=== PATIENT | female | born 1950 | race Caucasian/White ===

== ENCOUNTER 2018-11-16 12:49 | Inpatient (IN) ==
[2018-11-16] MEDS ORDERED: Aluminum/Magnesium/Simethacone Susp 30 ML UDC PO PRN (17:56)
[2018-11-16] MEDS ORDERED: Bisacodyl 10 MG Supp RECTAL PRN (17:56)
[2018-11-16] MEDS: Senna/Docusate Sodium 8.6/50 MG Tablet PO SCH (20:25)
[2018-11-17] MEDS: Senna/Docusate Sodium 8.6/50 MG Tablet PO SCH (08:50)
[2018-11-17] MEDS ORDERED: Acetaminophen 325 MG Tablet PO PRN (10:14)
[2018-11-17] MEDS ORDERED: Aluminum/Magnesium/Simethacone Susp 30 ML UDC PO PRN (10:19)
[2018-11-17 10:58] LABS: Calcium 9.4 mg/dL (8.5-10.1); Carbon Dioxide 25.7 meq/L (21.0-32.0); Potassium 3.9 meq/L (3.5-5.1)
[2018-11-17 11:00] LABS: Chol/HDL Ratio 2.69 Ratio; HDL Cholesterol 78.9 mg/dL (40.0-60.0)
--- NOTE | 2018-11-17 11:21 | P.HPPSY ---
Provisional Diagnosis Admission Date: November 16, 2018 16:58 [place] I.: Bipolar affective disorder most recent episode tobi with psychotic features Competence Certification of Person's Competence To Provide Express and Informed Consent I have personally examined Cristiana Griffin, a person being served at [facility] on, November 17, 2018 1027. Express and informed consent means consent voluntarily given in writing, by a competent person, after sufficient explanation and disclosure of the subject matter involved to enable the person to make a knowing and willful decision without any element of force, fraud, deceit, duress, or other form of constraint or coercion. This person is 18 years of age or older, is not now known to be incompetent to consent to treatment with a guardian advocate, and does not have a health care surrogate or proxy currently making medical treatment decisions. I have found this person to be one of the following: [] Competent to provide express and informed consent, as defined above, for voluntary admission to this facility and is competent to provide express and informed consent for treatment. He/she has the consistent capacity to make well reasoned, willful, and knowing decisions concerning his or her medical or mental health treatment. The person fully and consistently understands the purpose of the admission for examination/placement and is fully capable of personally exercising all rights assured under [place]x] Incompetent to provide express and informed consent to voluntary admission, and this is incompetent to provide express and informed consent to treatment. The person must be transferred to involuntary status and a petition for a guardian advocate filed with the Circuit Court. Refusing to provide express and informed consent to voluntary admission but is competent to provide express and informed consent for treatment. The person must be discharged or transferred to involuntary status. Form shall be completed within 24 hours of a person's arrival at the receiving facility and filed in the clinical record of each person: 1. Admitted on a voluntary basis 2. Permitted to provide express and informed consent to his/her own treatment 3. Allowed to transfer from involuntary to voluntary status 4. Prior to permitting a person to consent to his or her own treatment after having been previously found incompetent to consent to treatment. History of Present Illness Capacity: Lacks capacity History of Present Illness: Patient is a 68-year-old white female comes here under Panda act signed by radha Gonzalez dated 11/15/18 at 092 2 hours stating tobi psychosis patient has FOI tangential speech and erratic behavior. Patient seen screen at that facility urine toxicology negative blood alcohol level negative. It appears there is a bout of 3-week history of increasingly erratic aggressive irritable behaviors with insomnia this led to increasing stress and confrontation with her . I have also talked with her Best norris at [id number] he verifies this. He also states that while they have been for 20 years he is noted episodes of what could be construed as hypomanic behavior. Times and she became paranoid aggressive hostile demanding and intrusive. She also gave a history of significant cardiac issues with severe heart attack a number of years ago she has had a atrial cardiovert defibrillator placed. Recently she has had a replacement which is her third replacement. Patient is also states that she is gotten worse over the past 4-5 weeks to the point where he had he had to leave the house and stay with his brother for about a week. He finally had to take her to [facility] and [place] for assessment. Leading to her transfer here under the Panda act. There was a CT done in [place] that was negative. Though I do not see any EKG. He states alcohol has never been a significant problem for this lady nor has other drugs. Though she states she had been a smoker in the past but she uses E cigarettes at this time. Patient states this is her second marriage been for 20+ years that she has no children of her own. At the present time patient sitting in the day room patient is seen there with floor staff. Patient is alert oriented to the fact that she is in a psychiatric unit in the hospital in [facility]. She notices 2018 and November. She denies suicidality or homicidality. However she is quite distraught over feelings that she is being spied upon and monitored by herself all that is giving out some type of radiation and also in the television. The may be an auditory component to this along with the delusional ideation. Patient denies having mental illness states she just wants to go home to her . She states she is somewhat distressed because she states the of her first recently. These perceptual abnormalities are quite intense and persistent. Patient's states that in the past her transformation specialist have suggested a mental health assessment but she has resisted that. Patient denies any physical or sexual abuse. Denies any mental illness in her family of origin and though there appears to be a niece who may be bipolar. As mentioned above I talked to the patient's he is quite concerned about his . He is willing to be healthcare surrogate. Except because at this time I feel patient does not have the capacity to make appropriate decisions concerning her care thus I will do first opinion supporting Panda act request second opinion also ask for healthcare surrogate and guardian advocate. We will have Hospitalist consult with us. We will check a Depakote blood level. It appears that the doctors at [facility] may have started her on Depakote prior to her transfer here. We will also check an EKG. Hopefully to be fairly short stay and can return to her family. The also stated that his wishes to be a full code - Inpatient Certification I certify that the inpatient services were ordered in accordance with Medicare regulations governing the order. This includes certification that hospital inpatient services are reasonable and necessary and in the case of services not specified as inpatient-only under 42 CFR 419.22(n), that they are appropriately provided as inpatient services in accordance to with the 2-midnight benchmark under 43 CFR 412.3(e) I certify that inpatient psychiatric hospital services are medically necessary. Evaluation and treatment and/or diagnostic testing are expected to improve the patient's condition. The patient needs on a daily basis, active treatment furnished directly by or requiring the supervision of inpatient psychiatric facility personnel. Estimated Total Length of Stay (Days): 7 Plans for Post Hospital Care: Home Review of Systems Patient has significant chronic long-term cardiac issues PMFSH - History History Provided By: Patient, Family Member (Patient's ) - Social History I have reviewed the patient's Social History: Yes - Tobacco History Second Hand Smoke Exposure: No Tobacco Use In Past 30 Days: Yes Smoking Status: Former smoker Tobacco Type: E-Cigarettes - Alcohol History How Often Do You Have a Drink Containing Alcohol: 2 to 3 times a week - Substance Use History Substance History: No History of Abuse - Travel History Recent Travel in the USA Within the Last 8 Weeks: No Recent Travel Out of the Country Within the Last 8 Weeks: No - Immunization History Tetanus Immunization: >5 Years Hx Influenza Vaccine This Season: No Quality Measures - Psychiatric History Psychological trauma history: Patient has had some stressors with cardiac arrhythmias Violence risk to others in the last 6 months: Patient has become somewhat verbally aggressive with family members Violence risk to self in the last 6 months: Patient denies - Substance Abuse History Drug or alcohol use in the past 12 months: Rare alcohol denies other drug use - Patient Strengths Patient's strengths (minimum of 2): Patient verbal able [place] [facility] Medications and Allergies Active Medications: Active Medications Acetaminophen (Tylenol) 650 mg PO Q4H PRN PRN Reason: Pain 1-5 or Temp >101F Al Hydrox/Mg Hydrox/Simethicone (Mag-Al Plus Susp Liq) 30 ml PO Q6H PRN PRN Reason: DYSPEPSIA Al Hydrox/Mg Hydrox/Simethicone (Mag-Al Plus Susp Liq) 30 ml PO Q6H PRN PRN Reason: DYSPEPSIA Al Hydroxide/Mg Hydroxide (Milk Of Magnesia Liq) 30 ml PO Q12H PRN PRN Reason: Mild Constipation Diphenhydramine HCl (Benadryl) 50 mg PO HS PRN PRN Reason: INSOMNIA Hydroxyzine HCl (Atarax) 50 mg PO Q6H PRN PRN Reason: ANXIETY Allergies Allergy/AdvReac Type Severity Reaction Status Date / Time codeine Allergy Unknown Unresponsiv Unverified 11/16/18 19:19 e dronedarone [From Multaq] Allergy Unknown Unresponsiv Unverified 11/16/18 19:19 e sotalol [From Betapace] Allergy Unknown Unresponsiv Unverified 11/16/18 19:19 e tramadol [From Ultram] Allergy Unknown Unresponsiv Unverified 11/16/18 19:19 e Results - Labs CBC & Chem 7: 11/17/18 09:03 Exam Vital signs: Vital Signs 11/16/18 16:45 11/16/18 17:43 11/17/18 06:00 Temperature 97.5 F L 97.5 F L 97.3 F L Pulse Rate 60 60 61 Respiratory Rate 18 18 18 Blood Pressure 137/64 137/64 124/59 L Pulse Oximetry 94 L 94 L 98 Intake & Output 11/16/18 11/17/18 11/17/18 18:59 06:59 18:59 Weight 51 kg 51 kg Other: Weight On Admission 51 kg Narrative: Patient sitting quietly in the dayroom she is in no acute distress. Patient no respiratory distress. No complaints of chest pain or abdominal pain. Patient moving all 4 extremities without difficulty Mental Status Examination Appearance: Appropriate Consciousness: Alert Orientation: Person, Place, Date/Time, Situation Motor Activity: Normal gait Speech: Pressured Language: Adequate Fund of Knowledge: Adequate Attention and Concentration: Adequate (Fair) Memory: Unremarkable (Fair) Mood: Irritable (At times when discussing mental health issues), Other (Labile rapid swings from intense happy to tearful) Affect: Other (Increased range and intensity) Thought Process & Associations: Loose associations Thought Content: Bizarre thinking Hallucination Type: Auditory Delusion Type: Paranoid Suicidal Ideation: No Suicidal Plan: No Suicidal Intention: No Homicidal Ideation: No Homicidal Plan: No Homicidal Intention: No Insight: Poor Judgment: Poor Assessment and Plan - Assessment (1) Bipolar I disorder, most recent episode manic, severe with psychotic features Code(s): F31.2 - Bipolar disorder, current episode manic severe with psychotic features Status: Acute - Plan Plan: Estimated LOS: [] days Patient meets criteria for involuntary psychiatric hospitalization. It is my opinion the patient does not have capacity also thus I will ask for healthcare surrogate besides doing first opinion and request a second opinion. We will have the hospitalist consult with us. We will check a Depakote blood level on the blood already drawn we will continue her Depakote at 250 mg twice daily will refrain from opiates and benzodiazepines. Also the patient will cooperate with us. Though is willing to be healthcare surrogate/guardian advocate. Justification for Continued Inpatient Stay: At this time patient with decompensated placed in a lower level of care Discharge Planning: Hopefully to return home with Request Healthcare Surrogate/Guardian Advocate?: Yes
[2018-11-17] MEDS ORDERED: Divalproex 250 MG ER Tablet PO SCH (11:30)
--- NOTE | 2018-11-17 12:26 | P.DIET ---
Nutritional Evaluation Type of nutrition evaluation: initial Nutrition screening: Weight Loss > 10 lbs Objective - Diagnosis bipolar disorder - Objective Body Mass Index: 18 [place] body weight: 57 kg (125lbs ) % IBW: 89 Body Weight Used for Calculations: Actual (51kg) Energy Needs - Lower Range (kCal/kg): 28 Energy Needs - Upper Range (kCal/kg): 32 Lower Limit kCal/kg (kCals): 1,428 Upper Limit kCal/kg (kCals): 1,632 Lower Limit Protein Factor (Grams per Kg): 0.8 Upper Limit Protein Factor (Grams per Kg): 1.0 Lower Protein Needs (Protein): 41 Upper Protein Needs (Protein): 51 Dietitian Reviewed in Medical Record: Current diet, Curent medications, Labs, Medical history Diet Order: Cardiac Oral Diet Intake Amount: Good 75-90% Objective Comments: PMH; unknown at this time Labs; GFR 76, Glucose 187 Medications; reviewed Assessment Assessment: Weight loss screen; Pt presented to [facility] under Panda Act with tobi psychosis and erratic behavior. Pt is currently at nutritional risk related to recent unintentional weight loss and underweight BMI of 18. She is currently ordered for cardiac diet with PO intake 75-100%. At this time I will recommend Ensure supplement BID to support PO intake. Each can of Ensure will provide 250kcal and 9g protein. Labs and medications reviewed. Will continue to monitor PO intake and supplement acceptance and make further recommendations as needed. Recommendations: 1. Ensure nutritional supplement BID to support PO intake 2. Continue to encourage PO intake 3. Will continue to monitor clinical course Dietitian to Monitor: Lab values, Supplement acceptance, Diet tolerance, PO Intake, Medical course
--- NOTE | 2018-11-17 14:24 | P.CON ---
History of Present Illness Service: [facility] Consult date: 11/17/18 Requesting Physician: Lamberto Clark Reason for Consult: Medical management, abnormal EKG, complex cardiac history Primary Care Provider: Herbert Roque Chief Complaint: anxiety History of Present Illness: Patient is a 68-year-old white female who is a resident in [place], has significant cardiovascular history consistent of A. fib, cardiomyopathy has AICD since 2003, myocardial infarction in 1993, coronary artery disease and stent 3 years ago, ablations x3, CHF. Patient presented to this facility under Panda act. She was seen at the [facility] emergency room for complaint of 3 weeks of erratic, aggressive and irritable behavior with insomnia. No history of mental illness, has never been admitted to psychiatric facility. During evaluation in [place], patient had CT of the brain done which did not reveal any acute findings. Laboratory workup was unremarkable. An EKG was done , interpretation was sent that showed atrial paced nonspecific IVCD with LAD, LVH, inferior infarct acute as well as anterior infarct old. Per review of ER note, patient was supposedly seen by her full service supervisor up there however there is no documentation. Her cardiology group is Dr. Roque, Dr. Stewart and Dr. Xiao. Patient had a recent AICD battery change on September 08. According to the patient, postop she developed bleeding and had to return to the emergency room. She has been stable and was resumed on her Eliquis. She was recently taken off her Plavix and put on baby aspirin. Denies any recent discharges of her device. Hospital services are consulted because of her complex cardiac history. I spoke to patient's on the phone to confirm some of her history and then I spoke to her. Patient is irritable, at times difficult to focus but overall was able to provide a somewhat detailed history. She is upset about being at this facility as she felt that she was tricked. States that she is always on the "go" and her calls her "the everready bunny". Patient denies any chest pain, no shortness of breath, no palpitations. Indicates that her wound has been healing well and she has not had any episodes of bleeding. She went to see her full service supervisor last week and was found in stable condition. She did admit to feeling faint while she was looking out the window, she felt like her AICD was going discharge but it did not. Patient is seen ambulating around the difficulty. A 12-lead EKG was done at this facility and shows electronic atrial pacemaker, left anterior fascicular block, anterolateral myocardial infarction probably recent. Patient states been compliant with her medications. At this time, she has no complaints of chest discomfort, no dizziness, the sensation of faintness has passed. States she has not had a bowel movement in a few days. Hospital services are consulted for medical management Review of Systems All other systems reviewed negative except as stated in HPI PMFSH - History History Provided By: Patient, Family Member (Patient's ) - Medical History Medical History: Medical History (Last Reviewed 11/17/18 @ 14:22 by ROZINA Paredes) Atrial fibrillation CAD (coronary artery disease) CHF (congestive heart failure) Cardiomyopathy History of Mohs micrographic surgery for skin cancer - Surgical History Surgical History: Surgical History (Last Reviewed 11/17/18 @ 14:21 by ROZINA Paredes) AICD (automatic cardioverter/defibrillator) present Stented coronary artery - Family History Family History: Family History (Last Updated 11/17/18 @ 14:22 by ROZINA Paredes) Mother CAD (coronary artery disease) Father CAD (coronary artery disease) - Social History I have reviewed the patient's Social History: Yes - Tobacco History Second Hand Smoke Exposure: No Tobacco Use In Past 30 Days: Yes Smoking Status: Former smoker Tobacco Type: E-Cigarettes - Alcohol History How Often Do You Have a Drink Containing Alcohol: 2 to 3 times a week - Substance Use History Substance History: No History of Abuse - Substance Use Type Alcohol Status: Active Route Used: By Mouth Frequency: pt reports having 1 glass of wine everyday Reason for Use: Calm Down, Socialization Other Type: tobacco Status: Sustained Remission Route Used: By Mouth Frequency: Pt reports she stopped tobacco 3 yrs ago and smokes e cig. Reason for Use: Calm Down - Travel History Recent Travel in the [place] Within the Last 8 Weeks: No Recent Travel Out of the Country Within the Last 8 Weeks: No - Immunization History Tetanus Immunization: >5 Years Hx Influenza Vaccine This Season: No Medications and Allergies Active Medications: Active Medications Acetaminophen (Tylenol) 650 mg PO Q4H PRN PRN Reason: Pain 1-5 or Temp >101F Al Hydroxide/Mg Hydroxide (Milk Of Lucia Hirsch) 30 ml PO Q12H PRN PRN Reason: Mild Constipation Diphenhydramine HCl (Benadryl) 50 mg PO HS PRN PRN Reason: INSOMNIA Divalproex Sodium (Depakote Er) 250 mg PO BID NEELAM Last Admin: 11/17/18 13:48 Dose: 250 mg Hydroxyzine HCl (Atarax) 50 mg PO Q6H PRN PRN Reason: ANXIETY Allergies Allergy/AdvReac Type Severity Reaction Status Date / Time codeine Allergy Unknown Unresponsiv Unverified 11/16/18 19:19 e dronedarone [From Multaq] Allergy Unknown Unresponsiv Unverified 11/16/18 19:19 e sotalol [From Betapace] Allergy Unknown Unresponsiv Unverified 11/16/18 19:19 e tramadol [From Ultram] Allergy Unknown Unresponsiv Unverified 11/16/18 19:19 e Home Medications Medication Instructions Recorded Confirmed Type apixaban [Eliquis] 5 mg PO BID 11/17/18 11/17/18 History carvedilol [Coreg] 25 mg PO BID 11/17/18 11/17/18 History digoxin 0.125 mg PO DAILY 11/17/18 11/17/18 History dofetilide [Tikosyn] 500 mcg PO Q12H 11/17/18 11/17/18 History famotidine [Pepcid] 40 mg PO DAILY 11/17/18 11/17/18 History furosemide [Lasix] 20 mg PO DAILY 11/17/18 11/17/18 History lisinopril 20 mg PO DAILY 11/17/18 11/17/18 History lorazepam 1 mg PO HS 11/17/18 11/17/18 History Physical Exam Vital signs: Vital Signs 11/16/18 16:45 11/16/18 17:43 11/17/18 06:00 Temperature 97.5 F L 97.5 F L 97.3 F L Pulse Rate 60 60 61 Respiratory Rate 18 18 18 Blood Pressure 137/64 137/64 124/59 L Pulse Oximetry 94 L 94 L 98 11/17/18 12:30 Temperature 98.6 F Pulse Rate 61 Respiratory Rate 17 Blood Pressure 123/58 L Pulse Oximetry 100 Intake & Output 11/16/18 11/17/18 11/17/18 18:59 06:59 18:59 Weight 51 kg 51 kg Other: Weight On Admission 51 kg Narrative: GENERAL: Well-nourished, well-developed patient in no apparent distress. SKIN: Warm and dry. HEAD: Atraumatic. Normocephalic. EYES: Pupils equal and round. No scleral icterus. No injection or drainage. ENT: No nasal bleeding or discharge. Mucous membranes pink and moist. NECK: Trachea midline. No JVD. CARDIOVASCULAR: Regular rate and rhythm. Left chest wall with AICD site, incision intact, no drainage. Mildly tender to palpation RESPIRATORY: No accessory muscle use. Clear to auscultation. Breath sounds equal bilaterally. GASTROINTESTINAL: Abdomen soft, non-tender, nondistended. Hepatic and splenic margins not palpable. MUSCULOSKELETAL: Extremities without clubbing, cyanosis, or edema. No obvious deformities. NEUROLOGICAL: Awake and alert. No obvious cranial nerve deficits. Motor grossly within normal limits. Five out of 5 muscle strength in the arms and legs. Normal speech. PSYCHIATRIC: Disorganized Results - Labs CBC & Chem 7: 11/17/18 09:03 Labs: Laboratory Results - last 24 hr 11/17/18 09:03 Sodium 140 Potassium 3.9 Chloride 107 Carbon Dioxide 25.7 Anion Gap 7 BUN 16 Creatinine 0.76 Estimated GFR 76 L Random Glucose 187 H Calcium 9.4 Triglycerides 82 Cholesterol 213 H LDL Cholesterol, Calc 118 H HDL Cholesterol 78.9 H Cholesterol/HDL Ratio 2.69 Valproic Acid 38 L Assessment and Plan - Plan 68-year-old white female admitted under Panda act from [facility] emergency room for bipolar disorder with manic episode and psychosis. Patient with significant history of cardiovascular disease, coronary artery disease, DE, cardiomyopathy, A. fib, V. tach/V. fib, cardiac ablations. Hospital services requested for medical management. Bipolar disorder, manic episode with psychosis -Continue with psychiatric management Abnormal EKG, atrial pacemaker, left anterior fascicular block, anterolateral myocardial infarction possibly recent. No other EKG for comparison. Interpretation sent from [facility], appears to be seen, nonspecific IVCD with LAD Pt. asymptomatic, no sob, no CP. C/O feeling "faint" but sensation has passed -will repeat EKG in am -Request latest EKG from Dr. Roque's office Cardiomyopathy, has AICD since 2003. Hx of Vtach/Vfib Had recent AICD battery change, had postop bleeding. Has been stable, had interrogation a week ago. C/O feeling faint, felt she was going to be shocked. Denies any recent discharges -will have her full service supervisor's office fax latest interrogation -will repeat interrogation here. Afib, paced on monitor Hx of cardiac ablations CAD with previous DE and stent -will resume medications once reconciled -pt. on Eliquis at home Labs are reviewed, stable Medication reconciliation pending, is to provide list to nurse We will follow-up on device interrogation Patient will need transfer to med psych, possibly to telemetry floor depending on interrogation Case has been discussed with Dr. Ty. Plan of care discussed with patient and , RN and attending. Thank you for this consultation, will continue to follow. Code Status: Full code Discussed Condition With: RN, pt, pt's Discharge Planning: Per psych team
--- NOTE | 2018-11-17 14:47 | P.CONPSY ---
Provisional Diagnosis Admission Date: November 16, 2018 16:58 Assawoman I.: Bipolar affective disorder most recent episode tobi with psychotic features History of Present Illness Service: Alyssa Primary Care Provider: Herbert Roque Chief Complaint: anxiety History of Present Illness: Patient is a 68-year-old white female comes here under Panda act signed by radha Pleitezmatt Gonzalez dated 11/15/18 at 092 2 hours stating tobi psychosis patient has FOI tangential speech and erratic behavior. Patient seen screen at that facility urine toxicology negative blood alcohol level negative. It appears there is a bout of 3-week history of increasingly erratic aggressive irritable behaviors with insomnia this led to increasing stress and confrontation with her . I have also talked with her Best norris at [phone] he verifies this. He also states that while they have been for 20 years he is noted episodes of what could be construed as hypomanic behavior. Times and she became paranoid aggressive hostile demanding and intrusive. She also gave a history of significant cardiac issues with severe heart attack a number of years ago she has had a atrial cardiovert defibrillator placed. Recently she has had a replacement which is her third replacement. Patient is also states that she is gotten worse over the past 4-5 weeks to the point where he had he had to leave the house and stay with his brother for about a week. He finally had to take her to [facility] and [place] for assessment. Leading to her transfer here under the Panda act. There was a CT done in [place] that was negative. Though I do not see any EKG. He states alcohol has never been a significant problem for this lady nor has other drugs. Though she states she had been a smoker in the past but she uses E cigarettes at this time. Patient states this is her second marriage been for 20+ years that she has no children of her own. At the present time patient sitting in the day room patient is seen there with floor staff. Patient is alert oriented to the fact that she is in a psychiatric unit in the hospital in [facility]. She notices 2018 and November. She denies suicidality or homicidality. However she is quite distraught over feelings that she is being spied upon and monitored by herself all that is giving out some type of radiation and also in the television. The may be an auditory component to this along with the delusional ideation. Patient denies having mental illness states she just wants to go home to her . She states she is somewhat distressed because she states the of her first recently. These perceptual abnormalities are quite intense and persistent. Patient's states that in the past her lehr loader have suggested a mental health assessment but she has resisted that. Patient denies any physical or sexual abuse. Denies any mental illness in her family of origin and though there appears to be a niece who may be bipolar. As mentioned above I talked to the patient's he is quite concerned about his . He is willing to be healthcare surrogate. Except because at this time I feel patient does not have the capacity to make appropriate decisions concerning her care thus I will do first opinion supporting Panda act request second opinion also ask for healthcare surrogate and guardian advocate. We will have Hospitalist consult with us. We will check a Depakote blood level. It appears that the doctors at [place] may have started her on Depakote prior to her transfer here. We will also check an EKG. Hopefully to be fairly short stay and can return to her family. The also stated that his wishes to be a full code The patient is a 68-year-old woman, domiciled with her in [place], with a psychiatric history of bipolar disorder, hospitalized on the Panda act due to paranoia. Consulted to me for second opinion. The patient was seen in the recreational area of the unit. Calm, superficially cooperative, irritable. The patient seems to be internally preoccupied and paranoid, but she reports to be in a good mood, denies suicidal and homicidal ideation, denies visual and auditory hallucinations. She is oriented in person , partially in time and place. [facility] - History History Provided By: Patient, Family Member (Patient's ) - Medical History Medical History: Medical History (Last Reviewed 11/17/18 @ 14:22 by ROZINA Paredes) Atrial fibrillation CAD (coronary artery disease) CHF (congestive heart failure) Cardiomyopathy History of Mohs micrographic surgery for skin cancer - Surgical History Surgical History: Surgical History (Last Reviewed 11/17/18 @ 14:21 by ROZINA Paredes) AICD (automatic cardioverter/defibrillator) present Stented coronary artery - Family History Family History: Family History (Last Updated 11/17/18 @ 14:22 by ROZINA Paredes) Mother CAD (coronary artery disease) Father CAD (coronary artery disease) - Tobacco History Second Hand Smoke Exposure: No Tobacco Use In Past 30 Days: Yes Smoking Status: Former smoker Tobacco Type: E-Cigarettes - Alcohol History How Often Do You Have a Drink Containing Alcohol: 2 to 3 times a week - Substance Use History Substance History: No History of Abuse - Substance Use Type Alcohol Status: Active Route Used: By Mouth Frequency: pt reports having 1 glass of wine everyday Reason for Use: Calm Down, Socialization Other Type: tobacco Status: Sustained Remission Route Used: By Mouth Frequency: Pt reports she stopped tobacco 3 yrs ago and smokes e cig. Reason for Use: Calm Down - Travel History Recent Travel in the [facility] Within the Last 8 Weeks: No Recent Travel Out of the Country Within the Last 8 Weeks: No - Immunization History Tetanus Immunization: >5 Years Hx Influenza Vaccine This Season: No Medications and Allergies Active Medications: Active Medications Acetaminophen (Tylenol) 650 mg PO Q4H PRN PRN Reason: Pain 1-5 or Temp >101F Al Hydroxide/Mg Hydroxide (Milk Of Lucia Hirsch) 30 ml PO Q12H PRN PRN Reason: Mild Constipation Diphenhydramine HCl (Benadryl) 50 mg PO HS PRN PRN Reason: INSOMNIA Divalproex Sodium (Depakote Er) 250 mg PO BID NEELAM Last Admin: 11/17/18 13:48 Dose: 250 mg Hydroxyzine HCl (Atarax) 50 mg PO Q6H PRN PRN Reason: ANXIETY Allergies Allergy/AdvReac Type Severity Reaction Status Date / Time codeine Allergy Unknown Unresponsiv Unverified 11/16/18 19:19 e dronedarone [From Multaq] Allergy Unknown Unresponsiv Unverified 11/16/18 19:19 e sotalol [From Betapace] Allergy Unknown Unresponsiv Unverified 11/16/18 19:19 e tramadol [From Ultram] Allergy Unknown Unresponsiv Unverified 11/16/18 19:19 e Exam Vital signs: Vital Signs 11/16/18 16:45 11/16/18 17:43 11/17/18 06:00 Temperature 97.5 F L 97.5 F L 97.3 F L Pulse Rate 60 60 61 Respiratory Rate 18 18 18 Blood Pressure 137/64 137/64 124/59 L Pulse Oximetry 94 L 94 L 98 11/17/18 12:30 Temperature 98.6 F Pulse Rate 61 Respiratory Rate 17 Blood Pressure 123/58 L Pulse Oximetry 100 Intake & Output 11/16/18 11/17/18 11/17/18 18:59 06:59 18:59 Weight 51 kg 51 kg Other: Weight On Admission 51 kg Mental Status Examination Appearance: Appropriate Consciousness: Alert Orientation: Person, Place, Date/Time, Situation Motor Activity: Normal gait Speech: Pressured Language: Adequate Fund of Knowledge: Adequate Attention and Concentration: Adequate (Fair) Memory: Unremarkable (Fair) Mood: Irritable (At times when discussing mental health issues), Other (Labile rapid swings from intense happy to tearful) Affect: Other (Increased range and intensity) Thought Process & Associations: Loose associations Thought Content: Bizarre thinking Hallucination Type: Auditory Delusion Type: Paranoid Suicidal Ideation: No Suicidal Plan: No Suicidal Intention: No Homicidal Ideation: No Homicidal Plan: No Homicidal Intention: No Insight: Poor Judgment: Poor Assessment and Plan - Assessment (1) Bipolar I disorder, most recent episode manic, severe with psychotic features Code(s): F31.2 - Bipolar disorder, current episode manic severe with psychotic features Status: Acute - Plan Plan: I have seen and examined this patient, reviewed documentation, discussed the case with nursing staff, I completely agree and concur with Dr. Ty's assessment and plan. Consult appreciated Justification for Continued Inpatient Stay: Continue psychiatric admission Request Healthcare Surrogate/Guardian Advocate?: Yes
[2018-11-17 16:12] LABS: Hemoglobin A1c 5.3 % (4.3-6.0)
[2018-11-17] MEDS ORDERED: Carvedilol 12.5 MG Tablet PO SCH (21:00)
--- NOTE | 2018-11-17 23:04 | ECG ---
Date Performed: 11/17/2018 Time Performed: 12:27:15 PTAGE: 68 years EKG: ELECTRONIC ATRIAL PACEMAKER AV sequential pacing NO PREVIOUS TRACING DOCTOR: Jessika Hussein Interpretating Date/Time 11/17/2018 23:03:34
[2018-11-18] MEDS ORDERED: Furosemide 20 MG Tablet PO SCH (09:00)
[2018-11-18] MEDS ORDERED: Famotidine 20 MG Tablet PO SCH (09:00)
[2018-11-18] MEDS ORDERED: Lisinopril 20 MG Tablet PO SCH (09:00)
--- NOTE | 2018-11-18 09:00 | P.DSPSY ---
Psychiatry Discharge Summary Inpatient Psychiatric care?: Yes Advance Directives: Yes Reason for Unknown:: Other Mental Health Advance Directive: No Health Care Proxy: No - Admission Admission Date: November 16, 2018 16:58 - Admission Diagnosis (1) Bipolar I disorder, most recent episode manic, severe with psychotic features Code(s): F31.2 - Bipolar disorder, current episode manic severe with psychotic features Brief History: Patient is a 68-year-old white female comes here under Panda act signed by radha Gonzalez dated 11/15/18 at 092 2 hours stating tobi psychosis patient has FOI tangential speech and erratic behavior. Patient seen screen at that facility urine toxicology negative blood alcohol level negative. It appears there is a bout of 3-week history of increasingly erratic aggressive irritable behaviors with insomnia this led to increasing stress and confrontation with her . I have also talked with her Best norris at [phone] he verifies this. He also states that while they have been for 20 years he is noted episodes of what could be construed as hypomanic behavior. Times and she became paranoid aggressive hostile demanding and intrusive. She also gave a history of significant cardiac issues with severe heart attack a number of years ago she has had a atrial cardiovert defibrillator placed. Recently she has had a replacement which is her third replacement. Patient is also states that she is gotten worse over the past 4-5 weeks to the point where he had he had to leave the house and stay with his brother for about a week. He finally had to take her to [facility] and [place] for assessment. Leading to her transfer here under the Panda act. There was a CT done in [place] that was negative. Though I do not see any EKG. He states alcohol has never been a significant problem for this lady nor has other drugs. Though she states she had been a smoker in the past but she uses E cigarettes at this time. Patient states this is her second marriage been for 20+ years that she has no children of her own. At the present time patient sitting in the day room patient is seen there with floor staff. Patient is alert oriented to the fact that she is in a psychiatric unit in the hospital in [facility]. She notices 2018 and November. She denies suicidality or homicidality. However she is quite distraught over feelings that she is being spied upon and monitored by herself all that is giving out some type of radiation and also in the television. The may be an auditory component to this along with the delusional ideation. Patient denies having mental illness states she just wants to go home to her . She states she is somewhat distressed because she states the of her first recently. These perceptual abnormalities are quite intense and persistent. Patient's states that in the past her facilities painter have suggested a mental health assessment but she has resisted that. Patient denies any physical or sexual abuse. Denies any mental illness in her family of origin and though there appears to be a niece who may be bipolar. As mentioned above I talked to the patient's he is quite concerned about his . He is willing to be healthcare surrogate. Except because at this time I feel patient does not have the capacity to make appropriate decisions concerning her care thus I will do first opinion supporting Panda act request second opinion also ask for healthcare surrogate and guardian advocate. We will have Hospitalist consult with us. We will check a Depakote blood level. It appears that the doctors at [place] may have started her on Depakote prior to her transfer here. We will also check an EKG. Hopefully to be fairly short stay and can return to her family. The also stated that his wishes to be a full code Tobacco Use In Past 30 Days: Yes How Often Do You Have a Drink Containing Alcohol: 2 to 3 times a week Hospital Course: Please see above dictation under brief history. After initial H&P dictated results of patient's EKG were returned it was quite abnormal. Hospitalist was consulted they determined that patient needed further cardiac monitoring assessment and treatment on the medical floor of this patient was discharged [facility] directly admitted to [facility] medical unit - Discharge Discharge Date: 11/17/18 - Discharge Diagnosis (1) Abnormal EKG Diagnosis: Secondary Code(s): R94.31 - Abnormal electrocardiogram [ECG] [EKG] Status: Acute (2) Bipolar I disorder, most recent episode manic, severe with psychotic features Diagnosis: Principal Code(s): F31.2 - Bipolar disorder, current episode manic severe with psychotic features Status: Acute Discharge Disposition: Acute Care Facility - Discharge Instructions Discharge Diet: Heart Healthy Diet Activities You Can Perform: Continue Bed Rest - Discharge Time > 30 minutes Mental Status Examination Appearance: Appropriate Consciousness: Alert Orientation: Person, Place, Date/Time, Situation Motor Activity: Normal gait Speech: Pressured Language: Adequate Fund of Knowledge: Adequate Attention and Concentration: Adequate (Fair) Memory: Unremarkable (Fair) Mood: Irritable (At times when discussing mental health issues), Other (Labile rapid swings from intense happy to tearful) Affect: Other (Increased range and intensity) Thought Process & Associations: Loose associations Thought Content: Bizarre thinking Hallucination Type: Auditory Delusion Type: Paranoid Suicidal Ideation: No Suicidal Plan: No Suicidal Intention: No Homicidal Ideation: No Homicidal Plan: No Homicidal Intention: No Insight: Poor Judgment: Poor Discharge/Advance Care Plan - Results Vital Signs: Last Vital Signs Temp 98.2 F 11/17/18 17:36 Pulse 60 11/17/18 17:36 Resp 19 11/17/18 17:36 BP 129/64 11/17/18 17:36 Pulse Ox 98 11/17/18 17:36 Lab Results: Abnormal Lab Results 11/17/18 11/17/18 09:03 09:03 Sodium 140 Potassium 3.9 Chloride 107 Carbon Dioxide 25.7 Anion Gap 7 BUN 16 Creatinine 0.76 Estimated GFR 76 L Random Glucose 187 H Hemoglobin A1c 5.3 Calcium 9.4 Triglycerides 82 Cholesterol 213 H LDL Cholesterol, Calc 118 H HDL Cholesterol 78.9 H Cholesterol/HDL Ratio 2.69 Valproic Acid 38 L Laboratory Results Hemoglobin A1c 5.3 % (4.3-6.0) 11/17/18 09:03 Triglycerides 82 mg/dL (42-150) 11/17/18 09:03 Cholesterol 213 mg/dL (120-200) H 11/17/18 09:03 LDL Cholesterol, Calc 118 mg/dL (0-99) H 11/17/18 09:03 HDL Cholesterol 78.9 mg/dL (40.0-60.0) H 11/17/18 09:03 Valproic Acid 38 mcg/mL (50-100) L 11/17/18 09:03 Summary of Procedures: None done Pending Results: None - Medications Number of antipsychotic medications at discharge: 1 - Discharge Care Plan Goals to Promote Your Health: * To prevent worsening of your condition and complications * To maintain your health at the optimal level Directions to Meet Your Goals: Take your medications as prescribed Follow your dietary instruction Follow activity as directed Keep your appointments as scheduled Take your immunizations and boosters as scheduled If your symptoms worsen call your PCP, if no PCP go to Urgent Care Center or Emergency Room For 27/05 questions related to your inpatient stay or results of tests pending at discharge, please contact Dr. Davin Ty MD at Smoking is Dangerous to Your Health. Avoid second hand smoking
== END 2018-11-17 18:15 | disposition short-term general hospital (02) | DRG 885 ==
LOC: H250 16:58 → H4EA 11-17 15:23
PROVIDERS: ADMIT Psychiatry & Neurology Psychiatry; ATTEND Psychiatry & Neurology Psychiatry